=== PATIENT | male | born 1995 ===

== ENCOUNTER → 2016-08-24 | Outpatient (CLI) | payer BC ==
[~2016-08-24] MED LIST: METH4TAB27 PO
[2016-08-24 12:25] VITALS: BP 142/76
--- NOTE | 2016-08-24 12:25 | Urgent Care T Sheet Gen (E) ---
Intake General Temperature (Fahrenheit): 98.8 Pulse: 81 Blood Pressure Systolic: 142 Blood Pressure Diastolic: 76 Respirations: 18 SPO2: 97 Description of Symptoms Patient presents with illness since yesterday. Notes nasal congestion, PND and cough. No fever. Cough is productive. No meds to treat his symptoms. Tonsils were removed in the 3rd grade. States he has had strep throat once since then and he states his symptoms feel nothing like that. History of Present Illness Home Meds Active Scripts Methylprednisolone (Medrol Dosepack)21 Tab/Pkt Tablet6 Tab PO DAILY Inflammation #1 PKT Ref 0 Take 6 tabs po on day 1 then decrease by 1 tab daily until packet is gone. Prov:LINDSEY SHAIKH 08/24/16 Respiratory Constitutional Symptoms: No Fever, Malaise EENTM: Nose Congestion Throat pain Respiratory: Cough Cardiovascular: No symptoms reported Gastrointestinal/Abdominal: No symptoms reported All Other Systems Reviewed Remaining Systems: All other systems reviewed with negative findings Physical Exam Physical Exam General Appearance: WD/WN No apparent distress Eyes, Ears, Nose, Throat Ex: TMs normal (air fluid bubbles) Pharyngeal erythema (cobblestone appearance with clear PND) Other (clear, thin nasal drainage) Neck Exam: SuppleNo Lymphadenopathy Respiratory Exam: Lungs clear Normal breath sounds Cardiovascular Exam: Regular rate, rhythm Departure Urgent Care Impression Impression: Primary Impression: URI (upper respiratory infection) Qualified Code: J00 - Acute nasopharyngitis [common cold] Departure Disposition: HOME OR SELF-CARE Condition: Stable Additional Instructions: I offered to run a rapid strep test however the patient declined. Will treat symptomatically. Rest. Fluids. May take OTC Mucinex for congestion. I have prescribed a medrol dose pack, use as directed. If no better after completing the steroid, he may then call and at that time I will prescribed an antibiotic, most likely a Z-Pack. Patient agrees. Patient understands DC instructions. All questions were answered. Scripts Methylprednisolone (Medrol Dosepack)21 Tab/Pkt Tablet6 Tab PO DAILY Inflammation #1 PKT Ref 0 Take 6 tabs po on day 1 then decrease by 1 tab daily until packet is gone. Prov:LINDSEY SHAIKH 08/24/16 End of report . LINDSEY SHAIKH Aug 24, 2016 10:53
== END ==
LOC: MHUC 10:32
PROVIDERS: ATTEND Physician Assistant
DX: J00 Acute nasopharyngitis [common cold] (principal)
CPT/HCPCS: 99213